=== PATIENT | male | born 1950 | race Caucasian/White ===

== ENCOUNTER 2023-05-10 08:26 | Inpatient (IN) | payer OTHER ==
[~2023-05-10] VITALS: Ht 185.4 cm; Wt 92.5 kg
[2023-05-10] VITALS (9 sets, daily range): BP systolic 123–143; PULSE 148–154; RESP 16–20; TEMP 97.8–98.8; O2SAT 97–99
[2023-05-10] MEDS ORDERED: NACL 0.9% 1,000 ML IV ONE (09:00)
[2023-05-10 09:22] LABS: EOSINOPHILS # (AUTO) 0.1 K/uL (0.0-0.4); EOSINOPHILS % (AUTO) 0.7 % (0.0-4.0); HEMATOCRIT 50.3 % (36-54); HEMOGLOBIN 16.6 g/dL (14.0-18.0); LYMPHOCYTES # (AUTO) 0.2 K/uL (1.0-5.5); LYMPHOCYTES % (AUTO) 1.9 % (20.5-51.5); MEAN CORPUSCULAR HEMOGLOBIN 32 pg (27-31); MEAN CORPUSCULAR HGB CONC 33 % (32-36); MEAN CORPUSCULAR VOLUME 97 fL (79.0-98.0); MONOCYTES # (AUTO) 1.3 K/uL (0.0-1.0); MONOCYTES % (AUTO) 10.8 % (1.7-9.3); NEUTROPHILS # (AUTO) 10.7 K/uL (1.8-7.7); NEUTROPHILS % (AUTO) 86.6 % (40.0-70.0); PLATELET COUNT (AUTO) 249 K/uL (130-430); RED BLOOD CELL COUNT(AUTO) 5.18 MIL/uL (4.2-6.2); RED CELL DISTRIBUTION WIDTH 16.3 % (9.0-15.0); WHITE BLOOD COUNT (AUTO) 12.4 K/uL (4.8-10.8)
[2023-05-10 09:33] LABS: INR 1.2 (0.80-1.20); PROTHROMBIN TIME 12.4 SECS (9.5-12.5)
[2023-05-10 09:34] LABS: ALANINE AMINOTRANSFERASE 24 U/L (12-78); ALBUMIN 3.3 g/dL (3.4-4.8); ANION GAP 11 (5-15); ASPARTATE AMINOTRANSFERASE 39 U/L (10-37); CALCIUM 8.3 mg/dL (8.4-11.0); CARBON DIOXIDE 30 mmol/L (23-29); CHLORIDE 95 mmol/L (98-107); CREATININE 0.87 mg/dL (0.55-1.30); GLUCOSE 128 mg/dL (74-106); LIPASE 18 U/L (73-393); SODIUM SERUM 136 mmol/L (136-145); TOTAL BILIRUBIN 2.1 mg/dL (0.0-1.0); TOTAL PROTEIN, SERUM 6.8 g/dL (6.4-8.3); UREA NITROGEN, BLOOD 8 mg/dL (8-21)
[2023-05-10 09:38] LABS: POTASSIUM 2.6 mmol/L (3.5-5.1)
[2023-05-10] MEDS ORDERED: POTASSIUM CHLORIDE 20 MEQ TAB.PRT.SR PO ONE ×2 (10:00→17:30)
[2023-05-10] MEDS ORDERED: LACTULOSE 20 GM/30 ML UDC PO ONE (10:00)
[2023-05-10] MEDS ORDERED: AMIODARONE HCL 150 MG in D5W 97 ML IV ONE (10:15)
[2023-05-10 10:31] LABS: BILIRUBIN,URINE NEGATIVE (NEGATIVE); CLARITY/URINE Clear (CLEAR); COLOR,URINE YELLOW (YELLOW); GLUCOSE,URINE NEGATIVE (NEGATIVE); KETONES,URINE 1+ (NEGATIVE); NITRITE, URINE NEGATIVE (NEGATIVE); UROBILINOGEN,URINE 0.2 (0.2-1.0)
[2023-05-10 10:40] LABS: BLOOD, URINE TRACE (NEGATIVE); LEUKOCYTE ESTERASE ,URINE NEGATIVE (NEGATIVE); PROTEIN URINE TRACE (NEGATIVE)
[2023-05-10 10:43] LABS: BACTERIA,URINE RARE /HPF (None Seen); RBC,URINE 0-3 /HPF (0-3); WBC,URINE 0-3 /HPF (0-3)
[2023-05-10 10:44] LABS: MUCUS,URINE 1+ /LPF (None Seen)
[2023-05-10] MEDS ORDERED: MILK OF MAGNESIA 30 ML UDC PO ONE (13:00)
[2023-05-10] MEDS ORDERED: METOPROLOL SUCCINATE 25 MG TAB.SR.24H (TOPROL XL) PO ONE (15:00)
[2023-05-10] MEDS ORDERED: AMIODARONE HCL 200 MG TABLET PO ONE (17:30)
[2023-05-10] MEDS: D5/0.45 NS 1,000 ML IV SCH (21:20)
[2023-05-10] MEDS: AMIODARONE HCL 200 MG TABLET PO SCH (21:22)
[2023-05-10] MEDS: METOPROLOL SUCCINATE 25 MG TAB.SR.24H (TOPROL XL) PO SCH (21:22)
[2023-05-10] MEDS: APIXABAN 2.5 MG TABLET PO SCH (21:23)
[2023-05-10] MEDS: dilTIAZem HCL IVP 5 MG/ML VIAL IVP PRN (22:58)
[2023-05-11] VITALS (7 sets, daily range): BP systolic 98–126; PULSE 109–153; RESP 16–18; TEMP 97.5–98.6; O2SAT 96–99
[2023-05-11] MEDS: dilTIAZem HCL IVP 5 MG/ML VIAL IVP PRN (03:11)
[2023-05-11 05:09] LABS: BASOPHILS % (AUTO) 0.2 % (0.0-2.0); EOSINOPHILS % (AUTO) 0.3 % (0.0-4.0); HEMATOCRIT 46.4 % (36-54); HEMOGLOBIN 15.1 g/dL (14.0-18.0); LYMPHOCYTES # (AUTO) 0.6 K/uL (1.0-5.5); LYMPHOCYTES % (AUTO) 4.5 % (20.5-51.5); MEAN CORPUSCULAR HEMOGLOBIN 32 pg (27-31); MEAN CORPUSCULAR HGB CONC 33 % (32-36); MEAN CORPUSCULAR VOLUME 99 fL (79.0-98.0); MONOCYTES # (AUTO) 1.7 K/uL (0.0-1.0); MONOCYTES % (AUTO) 12.7 % (1.7-9.3); NEUTROPHILS % (AUTO) 82.3 % (40.0-70.0); PLATELET COUNT (AUTO) 232 K/uL (130-430); RED BLOOD CELL COUNT(AUTO) 4.71 MIL/uL (4.2-6.2); RED CELL DISTRIBUTION WIDTH 16.7 % (9.0-15.0); WHITE BLOOD COUNT (AUTO) 13.4 K/uL (4.8-10.8)
[2023-05-11 05:36] LABS: ALANINE AMINOTRANSFERASE 19 U/L (12-78); ALBUMIN 2.8 g/dL (3.4-4.8); ANION GAP 12 (5-15); ASPARTATE AMINOTRANSFERASE 32 U/L (10-37); CALCIUM 7.9 mg/dL (8.4-11.0); CARBON DIOXIDE 29 mmol/L (23-29); CHLORIDE 99 mmol/L (98-107); CHOLESTEROL 104 mg/dL (<200); CREATININE 0.81 mg/dL (0.55-1.30); GLUCOSE 110 mg/dL (74-106); HDL CHOLESTEROL 68 mg/dL (>45); SODIUM SERUM 140 mmol/L (136-145); TOTAL BILIRUBIN 1.5 mg/dL (0.0-1.0); TOTAL PROTEIN, SERUM 6.1 g/dL (6.4-8.3); TRIGLYCERIDES 56 mg/dL (30-150); UREA NITROGEN, BLOOD 5 mg/dL (8-21)
[2023-05-11] MEDS: AMIODARONE HCL 200 MG TABLET PO SCH ×3 (05:52→21:56)
[2023-05-11 06:09] LABS: POTASSIUM 2.6 mmol/L (3.5-5.1)
[2023-05-11] MEDS ORDERED: POTASSIUM CHLORIDE 20 MEQ TAB.PRT.SR PO ONE ×3 (07:15→21:00)
[2023-05-11] MEDS: METOPROLOL SUCCINATE 25 MG TAB.SR.24H (TOPROL XL) PO SCH ×2 (08:35→20:30)
[2023-05-11] MEDS: APIXABAN 2.5 MG TABLET PO SCH ×2 (08:36→21:00)
[2023-05-11] MEDS ORDERED: METOPROLOL SUCCINATE 25 MG TAB.SR.24H (TOPROL XL) PO ONE (11:00)
[2023-05-11] MEDS: D5/0.45 NS 1,000 ML IV SCH (12:16)
[2023-05-11] MEDS: metroNIDAZOLE 500 MG TABLET PO SCH ×2 (14:00→21:57)
[2023-05-11] MEDS ORDERED: BISACODYL 5 MG TABLET.DR (DULCOLAX) PO ONE (17:00)
[2023-05-11 17:50] LABS: CALCIUM 8.2 mg/dL (8.4-11.0); CREATININE 0.78 mg/dL (0.55-1.30); GLUCOSE 108 mg/dL (74-106); UREA NITROGEN, BLOOD 5 mg/dL (8-21)
[2023-05-11] MEDS ORDERED: GOLYTELY / COLYTE SOLUTION 4 LITERS PO ONE (18:00)
[2023-05-11 18:15] LABS: ANION GAP 10 (5-15); CARBON DIOXIDE 27 mmol/L (23-29); CHLORIDE 98 mmol/L (98-107); POTASSIUM 3.2 mmol/L (3.5-5.1); SODIUM SERUM 135 mmol/L (136-145)
[2023-05-11] MEDS ORDERED: METOPROLOL TARTRATE 5 MG/5 ML VIAL IVP ONE (18:15)
[2023-05-12] MEDS: D5/0.45 NS 1,000 ML IV SCH ×2 (00:12→12:30)
[2023-05-12 00:18] VITALS: BP_SYST 105; PULSE 140; RESP 16; TEMP 96.8; O2SAT 97
[2023-05-12] MEDS: METOPROLOL TARTRATE 5 MG/5 ML VIAL IVP PRN ×2 (02:36→15:04)
[2023-05-12] MEDS: AMIODARONE HCL 200 MG TABLET PO SCH ×3 (05:07→22:18)
[2023-05-12] MEDS: metroNIDAZOLE 500 MG TABLET PO SCH ×3 (05:07→22:17)
[2023-05-12 05:45] LABS: BASOPHILS % (AUTO) 0.2 % (0.0-2.0); EOSINOPHILS # (AUTO) 0.2 K/uL (0.0-0.4); EOSINOPHILS % (AUTO) 1.6 % (0.0-4.0); HEMATOCRIT 46.2 % (36-54); HEMOGLOBIN 15.1 g/dL (14.0-18.0); LYMPHOCYTES # (AUTO) 0.7 K/uL (1.0-5.5); LYMPHOCYTES % (AUTO) 4.2 % (20.5-51.5); MEAN CORPUSCULAR HEMOGLOBIN 32 pg (27-31); MEAN CORPUSCULAR HGB CONC 33 % (32-36); MEAN CORPUSCULAR VOLUME 98 fL (79.0-98.0); MONOCYTES # (AUTO) 1.8 K/uL (0.0-1.0); MONOCYTES % (AUTO) 11.5 % (1.7-9.3); NEUTROPHILS # (AUTO) 12.9 K/uL (1.8-7.7); NEUTROPHILS % (AUTO) 82.5 % (40.0-70.0); PLATELET COUNT (AUTO) 279 K/uL (130-430); RED BLOOD CELL COUNT(AUTO) 4.71 MIL/uL (4.2-6.2); RED CELL DISTRIBUTION WIDTH 16.5 % (9.0-15.0); WHITE BLOOD COUNT (AUTO) 15.6 K/uL (4.8-10.8)
[2023-05-12 05:59] LABS: ANION GAP 11 (5-15); CALCIUM 8.1 mg/dL (8.4-11.0); CARBON DIOXIDE 27 mmol/L (23-29); CHLORIDE 98 mmol/L (98-107); CREATININE 0.84 mg/dL (0.55-1.30); GLUCOSE 123 mg/dL (74-106); SODIUM SERUM 136 mmol/L (136-145); UREA NITROGEN, BLOOD 6 mg/dL (8-21)
[2023-05-12 07:07] LABS: POTASSIUM 2.8 mmol/L (3.5-5.1)
[2023-05-12 08:00] VITALS: BP_SYST 116; PULSE 146; RESP 16; TEMP 97.5; O2SAT 97
[2023-05-12] MEDS: METOPROLOL SUCCINATE 25 MG TAB.SR.24H (TOPROL XL) PO SCH ×2 (08:20→20:35)
[2023-05-12] MEDS: APIXABAN 2.5 MG TABLET PO SCH ×2 (08:21→20:36)
[2023-05-12] MEDS ORDERED: POTASSIUM CHLORIDE 20 MEQ TAB.PRT.SR PO ONE (09:15)
[2023-05-12 11:00] VITALS: O2SAT 97
[2023-05-12 12:00] VITALS: BP_SYST 112; PULSE 144; RESP 18; TEMP 97.4; O2SAT 99
[2023-05-12] MEDS ORDERED: MAGNESIUM SULFATE 1 GM/2 ML VIAL IV ONE (12:00)
[2023-05-12] MEDS ORDERED: DIGOXIN 0.5 MG/2 ML AMP IVP ONE ×2 (12:00→17:00)
[2023-05-12 12:16] LABS: BASOPHILS % (AUTO) 0.3 % (0.0-2.0); EOSINOPHILS # (AUTO) 0.3 K/uL (0.0-0.4); EOSINOPHILS % (AUTO) 2.2 % (0.0-4.0); HEMATOCRIT 43.4 % (36-54); HEMOGLOBIN 14.4 g/dL (14.0-18.0); LYMPHOCYTES # (AUTO) 0.7 K/uL (1.0-5.5); LYMPHOCYTES % (AUTO) 4.8 % (20.5-51.5); MEAN CORPUSCULAR HEMOGLOBIN 32 pg (27-31); MEAN CORPUSCULAR HGB CONC 33 % (32-36); MEAN CORPUSCULAR VOLUME 98 fL (79.0-98.0); MONOCYTES % (AUTO) 13.6 % (1.7-9.3); NEUTROPHILS # (AUTO) 11.6 K/uL (1.8-7.7); NEUTROPHILS % (AUTO) 79.1 % (40.0-70.0); PLATELET COUNT (AUTO) 282 K/uL (130-430); RED BLOOD CELL COUNT(AUTO) 4.44 MIL/uL (4.2-6.2); RED CELL DISTRIBUTION WIDTH 16.4 % (9.0-15.0); WHITE BLOOD COUNT (AUTO) 14.6 K/uL (4.8-10.8)
[2023-05-12] MEDS ORDERED: LACTOBACILLUS RHAMNOSUS GG 1 CAP CAPSULE PO ONE (12:30)
[2023-05-12] MEDS ORDERED: MAGNESIUM SULFATE 50 ML IV ONE (12:45)
[2023-05-12] MEDS ORDERED: KCL 20 mEq in 100 mL (PREMIX) 100 ML IV ONE ×2 (13:00→15:00)
[2023-05-12] MEDS ORDERED: POTASSIUM CHLORIDE 20 MEQ TAB.PRT.SR PO SCH (13:00)
[2023-05-12 16:00] VITALS: BP_SYST 114; PULSE 144; RESP 18; TEMP 97.7; O2SAT 98
[2023-05-12 19:29] LABS: ANION GAP 8 (5-15); CALCIUM 8.3 mg/dL (8.4-11.0); CARBON DIOXIDE 29 mmol/L (23-29); CHLORIDE 99 mmol/L (98-107); GLUCOSE 159 mg/dL (74-106); POTASSIUM 3.6 mmol/L (3.5-5.1); SODIUM SERUM 136 mmol/L (136-145); UREA NITROGEN, BLOOD 10 mg/dL (8-21)
[2023-05-12 19:30] VITALS: BP_SYST 117; PULSE 132; RESP 18; TEMP 97.5; O2SAT 98
[2023-05-13 00:05] VITALS: BP_SYST 106; PULSE 85; RESP 15; TEMP 97.2; O2SAT 97
[2023-05-13 04:45] LABS: ALANINE AMINOTRANSFERASE 21 U/L (12-78); ALBUMIN 2.5 g/dL (3.4-4.8); ANION GAP 7 (5-15); ASPARTATE AMINOTRANSFERASE 33 U/L (10-37); CARBON DIOXIDE 29 mmol/L (23-29); CHLORIDE 102 mmol/L (98-107); CREATININE 0.82 mg/dL (0.55-1.30); GLUCOSE 102 mg/dL (74-106); POTASSIUM 3.4 mmol/L (3.5-5.1); SODIUM SERUM 138 mmol/L (136-145); TOTAL BILIRUBIN 1.1 mg/dL (0.0-1.0); TOTAL PROTEIN, SERUM 5.7 g/dL (6.4-8.3); UREA NITROGEN, BLOOD 8 mg/dL (8-21)
[2023-05-13] MEDS: metroNIDAZOLE 500 MG TABLET PO SCH ×3 (05:58→23:16)
[2023-05-13] MEDS: AMIODARONE HCL 200 MG TABLET PO SCH ×3 (05:59→23:17)
[2023-05-13 08:00] VITALS: BP_SYST 137; PULSE 138; RESP 16; TEMP 97.9; O2SAT 98
[2023-05-13] MEDS: LACTOBACILLUS RHAMNOSUS GG 1 CAP CAPSULE PO SCH (08:37)
[2023-05-13] MEDS: POTASSIUM CHLORIDE 20 MEQ TAB.PRT.SR PO SCH ×2 (08:37→20:51)
[2023-05-13] MEDS: APIXABAN 2.5 MG TABLET PO SCH ×2 (08:40→20:55)
[2023-05-13] MEDS: METOPROLOL SUCCINATE 50 MG TAB.SR.24H (TOPROL XL) PO SCH ×2 (08:44→20:51)
[2023-05-13 12:00] VITALS: BP_SYST 137; PULSE 65; RESP 17; TEMP 97.9; O2SAT 98
[2023-05-13] MEDS ORDERED: LEVOFLOXACIN 250 MG/D5W 50 ML IV SCH (12:00)
[2023-05-13] MEDS ORDERED: POTASSIUM CHLORIDE 20 MEQ TAB.PRT.SR PO ONE (12:15)
[2023-05-13 16:00] VITALS: BP_SYST 116; PULSE 90; RESP 17; TEMP 97.3; O2SAT 98
[2023-05-13 20:00] VITALS: BP_SYST 118; PULSE 115; RESP 18; TEMP 97.4; O2SAT 98
[2023-05-13 21:35] VITALS: O2SAT 98
[2023-05-14] VITALS: BP_SYST 113; PULSE 67; PULSE 69; RESP 18; TEMP 97.7; O2SAT 98
[2023-05-14] MEDS: metroNIDAZOLE 500 MG TABLET PO SCH ×3 (06:40→23:33)
[2023-05-14] MEDS: AMIODARONE HCL 200 MG TABLET PO SCH ×2 (06:43→20:06)
[2023-05-14 08:00] VITALS: BP_SYST 127; PULSE 77; RESP 16; TEMP 97.1; O2SAT 96
[2023-05-14] MEDS: METOPROLOL SUCCINATE 50 MG TAB.SR.24H (TOPROL XL) PO SCH ×2 (08:47→20:06)
[2023-05-14] MEDS: APIXABAN 2.5 MG TABLET PO SCH ×2 (08:49→20:22)
[2023-05-14] MEDS: LACTOBACILLUS RHAMNOSUS GG 1 CAP CAPSULE PO SCH (08:49)
[2023-05-14] MEDS: POTASSIUM CHLORIDE 20 MEQ TAB.PRT.SR PO SCH ×2 (08:49→20:05)
[2023-05-14] MEDS ORDERED: SPIRONOLACTONE 25 MG TABLET (ALDACTONE) PO ONE (09:00)
[2023-05-14 09:27] LABS: ANION GAP 8 (5-15); CALCIUM 8.6 mg/dL (8.4-11.0); CARBON DIOXIDE 28 mmol/L (23-29); CHLORIDE 100 mmol/L (98-107); CREATININE 1.02 mg/dL (0.55-1.30); GLUCOSE 136 mg/dL (74-106); POTASSIUM 3.3 mmol/L (3.5-5.1); SODIUM SERUM 136 mmol/L (136-145); UREA NITROGEN, BLOOD 10 mg/dL (8-21)
[2023-05-14] MEDS: PSYLLIUM HUSK 1 PKT PACKET PO SCH (10:04)
[2023-05-14] MEDS: MESALAMINE 4 GM/60 ML ENEMA RC SCH (10:21)
[2023-05-14 12:00] VITALS: BP_SYST 127; PULSE 77; RESP 18; TEMP 98.3; O2SAT 98
[2023-05-14 12:53] LABS: BILIRUBIN,URINE NEGATIVE (NEGATIVE); CLARITY/URINE Clear (CLEAR); COLOR,URINE YELLOW (YELLOW); GLUCOSE,URINE NEGATIVE (NEGATIVE); KETONES,URINE NEGATIVE (NEGATIVE); NITRITE, URINE NEGATIVE (NEGATIVE); PH,URINE 5.5 (5.0-8.0); PROTEIN URINE NEGATIVE (NEGATIVE); UROBILINOGEN,URINE 0.2 (0.2-1.0)
[2023-05-14 13:09] LABS: BLOOD, URINE TRACE (NEGATIVE); LEUKOCYTE ESTERASE ,URINE NEGATIVE (NEGATIVE)
[2023-05-14 16:00] VITALS: BP_SYST 129; PULSE 72; RESP 16; TEMP 97.7; O2SAT 95
[2023-05-14 20:00] VITALS: BP_SYST 146; PULSE 75; RESP 18; TEMP 97; O2SAT 98
[2023-05-14] MEDS: CEFEPIME 2 GM in D5W 100 ML IV SCH (20:05)
[2023-05-15] VITALS: BP_SYST 100; PULSE 68; RESP 18; TEMP 97.5; O2SAT 99
[2023-05-15 06:37] LABS: BASOPHILS % (AUTO) 0.3 % (0.0-2.0); EOSINOPHILS # (AUTO) 0.3 K/uL (0.0-0.4); EOSINOPHILS % (AUTO) 3.3 % (0.0-4.0); HEMATOCRIT 42.2 % (36-54); HEMOGLOBIN 13.6 g/dL (14.0-18.0); LYMPHOCYTES # (AUTO) 0.4 K/uL (1.0-5.5); LYMPHOCYTES % (AUTO) 4.2 % (20.5-51.5); MEAN CORPUSCULAR HEMOGLOBIN 32 pg (27-31); MEAN CORPUSCULAR HGB CONC 32 % (32-36); MEAN CORPUSCULAR VOLUME 99 fL (79.0-98.0); MONOCYTES # (AUTO) 1.5 K/uL (0.0-1.0); MONOCYTES % (AUTO) 15.3 % (1.7-9.3); NEUTROPHILS # (AUTO) 7.4 K/uL (1.8-7.7); NEUTROPHILS % (AUTO) 76.9 % (40.0-70.0); PLATELET COUNT (AUTO) 373 K/uL (130-430); RED BLOOD CELL COUNT(AUTO) 4.24 MIL/uL (4.2-6.2); RED CELL DISTRIBUTION WIDTH 16.4 % (9.0-15.0); WHITE BLOOD COUNT (AUTO) 9.6 K/uL (4.8-10.8)
[2023-05-15] MEDS: metroNIDAZOLE 500 MG TABLET PO SCH ×2 (06:42→13:42)
[2023-05-15 06:52] LABS: ANION GAP 4 (5-15); CALCIUM 8.4 mg/dL (8.4-11.0); CARBON DIOXIDE 32 mmol/L (23-29); CHLORIDE 102 mmol/L (98-107); CREATININE 1.02 mg/dL (0.55-1.30); GLUCOSE 92 mg/dL (74-106); POTASSIUM 4.6 mmol/L (3.5-5.1); SODIUM SERUM 138 mmol/L (136-145); UREA NITROGEN, BLOOD 9 mg/dL (8-21)
[2023-05-15 08:00] VITALS: BP_SYST 115; PULSE 78; RESP 18; TEMP 97.5; O2SAT 96
[2023-05-15] MEDS: MESALAMINE 4 GM/60 ML ENEMA RC SCH (09:00)
[2023-05-15] MEDS ORDERED: SPIRONOLACTONE 25 MG TABLET (ALDACTONE) PO SCH (09:00)
[2023-05-15] MEDS: LACTOBACILLUS RHAMNOSUS GG 1 CAP CAPSULE PO SCH (09:19)
[2023-05-15] MEDS: CEFEPIME 2 GM in D5W 100 ML IV SCH (09:19)
[2023-05-15] MEDS: POTASSIUM CHLORIDE 20 MEQ TAB.PRT.SR PO SCH (09:19)
[2023-05-15] MEDS: AMIODARONE HCL 200 MG TABLET PO SCH (09:20)
[2023-05-15] MEDS: METOPROLOL SUCCINATE 50 MG TAB.SR.24H (TOPROL XL) PO SCH (09:21)
[2023-05-15] MEDS: APIXABAN 2.5 MG TABLET PO SCH (09:22)
[2023-05-15] MEDS: PSYLLIUM HUSK 1 PKT PACKET PO SCH (09:34)
[2023-05-15 12:00] VITALS: BP_SYST 121; PULSE 72; RESP 18; TEMP 97.6; O2SAT 98
[2023-05-15 13:59] VITALS: BP_SYST 121; PULSE 72; RESP 18; TEMP 97.6; O2SAT 98
[2023-05-15] MEDS ORDERED: METO-542 PO (14:20)
[2023-05-15] MEDS ORDERED: MESA4KIT3 RC (14:20)
[2023-05-15] MEDS ORDERED: SPIR25TA PO (14:20)
[2023-05-15] MEDS ORDERED: APIX2.5T PO (14:20)
[2023-05-15] MEDS ORDERED: AMIO200T68 PO (14:20)
[2023-05-15] MEDS ORDERED: METR-154 PO ×2 (14:20)
[2023-05-15] MEDS ORDERED: AMOX-404 PO (14:43)
== END 2023-05-15 18:10 | disposition home health service (06) | DRG 386 ==
LOC: SED 08:26 → STU 13:30
PROVIDERS: ADMIT Specialist; ATTEND Specialist
DX: K51.20 Ulcerative (chronic) proctitis without complications (principal); E44.1 Mild protein-calorie malnutrition; I48.92 Unspecified atrial flutter; K52.9 Noninfective gastroenteritis and colitis, unspecified; I48.91 Unspecified atrial fibrillation; K64.8 Other hemorrhoids; I10 Essential (primary) hypertension; K59.00 Constipation, unspecified; E87.6 Hypokalemia; Z87.891 Personal history of nicotine dependence; Z79.899 Other long term (current) drug therapy; Z68.26 Body mass index [BMI] 26.0-26.9, adult
CPT/HCPCS: 36415; 71045; 74018; 76376; 80048; 80053; 80061; 80162; 81000; 81003; 82088; 83605; 83690; 83735; 83880; 84443; 84484; 84999; 85025; 85610-TC; 85730-TC; 87040; 87045-TC; 87046; 87086; 89055; 93005; 93306; 96361; 96365; 99291; G0378; J0282; J0692; J1160; J1956; J3475; J3480; J3490; J7050; J7060